=== PATIENT | female | born 1990 | race African-American/Black ===

== ENCOUNTER 2018-04-15 13:20 | Inpatient (IN) | payer MEDICAID ==
[~2018-04-15] VITALS: Ht 162.6 cm; Wt 82.6 kg
[2018-04-15] MEDS ORDERED: METF-960 PO (13:34)
[2018-04-15] MEDS ORDERED: psych meds PO (13:34)
[2018-04-15 13:39] LABS: GLUCOSE,POINT OF CARE 226 MG/DL (70-110)
[2018-04-15 14:38] LABS: BASOPHILS % (AUTO) 0.1 % (0.0-2.0); EOSINOPHILS % (AUTO) 0.9 % (1.0-6.0); HEMATOCRIT 34.7 % (36-46); HEMOGLOBIN 11.6 g/dL (12.0-16.0); LYMPHOCYTES % (AUTO) 9.2 % (22.0-44.0); MEAN CORPUSCULAR HEMOGLOBIN 27.7 pg (26.0-34.0); MEAN CORPUSCULAR HGB CONC 33.4 G/dL (31.0-37.0); MEAN CORPUSCULAR VOLUME 83 fL (80-100); MONOCYTES # (AUTO) 0.8 K/uL (0.1-1.0); MONOCYTES % (AUTO) 7.7 % (2.0-9.0); NEUTROPHILS # (AUTO) 8.5 K/uL (1.8-7.7); NEUTROPHILS % (AUTO) 82.1 % (40.0-70.0); PLATELET COUNT (AUTO) 308 K/uL (150-450); RED BLOOD CELL COUNT(AUTO) 4.18 MIL/uL (4.00-5.20); RED CELL DISTRIBUTION WIDTH 17.1 % (11.5-14.5)
[2018-04-15 14:52] LABS: ANION GAP 9 mmol/L (8-16); CALCIUM, TOTAL 9.1 mg/dL (8.8-10.5); CARBON DIOXIDE 28 mmol/L (22-29); CHLORIDE 101 mmol/L (98-107); CREATININE 0.65 mg/dL (0.60-1.30); GLOMERULAR FILTR. RATE CALC > 60 mL/min (>60); GLUCOSE,RANDOM 123 mg/dL (70-110); POTASSIUM 3.5 mmol/L (3.5-5.1); SODIUM SERUM 138 mmol/L (136-145); UREA NITROGEN, BLOOD 8 mg/dL (7-18)
[2018-04-15 14:59] LABS: ALANINE AMINOTRANSFERASE 85 U/L (12-78); ALBUMIN 3.2 g/dL (3.4-5.0); ALKALINE PHOSPHATASE 82 U/L (46-116); ASPARTATE AMINOTRANSFERASE 69 U/L (15-37); BILIRUBIN,TOTAL 0.3 mg/dL (0.1-1.0); TOTAL PROTEIN, SERUM 6.9 g/dL (6.4-8.2)
[2018-04-15] MEDS ORDERED: ZOLPIDEM TARTRATE 10 MG TABLET PO PRN (16:45)
[2018-04-15] MEDS ORDERED: LORazepam 2 MG TABLET PO ONE (17:00)
[2018-04-15] MEDS ORDERED: QUEtiapine FUMARATE 100 MG TABLET PO ONE (17:00)
[2018-04-15 17:44] LABS: CHOL/HDL RATIO 3.6 (3.9-5.7); CHOLESTEROL 137 mg/dL (131-200); HCG,QUANTITATIVE < 1 mIU/mL (0-6); HDL CHOLESTEROL 38 mg/dL (40-60); LDL CHOL (CALC.) 59 mg/dL (0-130); TRIGLYCERIDES 201 mg/dL (15-150)
[2018-04-15] MEDS ORDERED: DOCUSATE SODIUM 100 MG CAPSULE PO PRN (20:00)
[2018-04-15] MEDS ORDERED: ACETAMINOPHEN 325 MG TABLET PO PRN (20:00)
[2018-04-15] MEDS ORDERED: MAG HYDROX/AL HYDROX/SIMETH ES 30 ML SUSPENSION UDCUP PO PRN (20:00)
[2018-04-15] MEDS ORDERED: ONDANSETRON HCL 4 MG TABLET PO PRN (20:00)
[2018-04-15] MEDS ORDERED: MAGNESIUM HYDROXIDE SUSPENSION 30 ML UDCUP PO PRN (20:00)
[2018-04-15] MEDS ORDERED: ALBUTEROL SULFATE HFA 90 MCG/PUFF 8 GM INHALER IH PRN (20:00)
[2018-04-15] MEDS ORDERED: CloNIDine HCL 0.1 MG TABLET PO PRN (20:00)
[2018-04-15] MEDS ORDERED: PETROLATUM,WHITE 71 GM JELLY TP PRN (20:00)
[2018-04-15] MEDS ORDERED: LOPERAMIDE HCL 2 MG CAPSULE PO PRN (20:00)
[2018-04-15] MEDS ORDERED: GuaiFENesin/D-METHORPHAN [SUGAR-FREE] 200-20MG/10 ML SYRUP UDCUP PO PRN (20:00)
[2018-04-15 20:11] VITALS: BP 114/55
[2018-04-16 03:57] VITALS: BP 110/55
[2018-04-16] MEDS: MetFORMIN HCL 500 MG TABLET PO SCH (06:36)
[2018-04-16 07:06] LABS: HEMOGLOBIN A1C 9.2 % (4.5-6.2)
[2018-04-16 07:53] LABS: CHOL/HDL RATIO 3.2 (3.9-5.7); THYROID STIMULATING HORMONE 0.23 uIU/mL (0.36-3.74)
[2018-04-16 08:58] VITALS: BP 145/76
[2018-04-16] MEDS: NICOTINE 14 MG/24 HOUR PATCH TD SCH (09:00)
[2018-04-16] MEDS: DIVALPROEX SODIUM 500 MG DR TABLET PO SCH (16:29)
[2018-04-16] MEDS: ZIPRASIDONE HCL 20 MG CAPSULE PO SCH (16:30)
[2018-04-16 17:54] LABS: APPEARANCE,URINE CLOUDY (CLEAR); BILIRUBIN,URINE NEGATIVE (NEGATIVE); GLUCOSE, URINE (UA) NEGATIVE (NEGATIVE); KETONES,URINE NEGATIVE (NEGATIVE); LEUKOCYTE ESTERASE ,URINE TRACE (NEGATIVE); NITRATE,URINE NEGATIVE (NEGATIVE); OCCULT BLOOD,URINE NEGATIVE (NEGATIVE); PH,URINE 6.5 (5.0-8.0); PROTEIN,URINE NEGATIVE (NEGATIVE); UROBILINOGEN,URINE 0.2 mg/dL (<=1.0)
[2018-04-16 17:59] LABS: AMPHET/METH SCREEN,URINE NEGATIVE (NEGATIVE); BARBITURATE SCREEN, URINE NEGATIVE (NEGATIVE); BENZODIAZEPINES SCREEN,URINE NEGATIVE (NEGATIVE); CANNABINOID SCREEN,URINE NEGATIVE (NEGATIVE); COCAINE SCREEN,URINE NEGATIVE (NEGATIVE); METHADONE SCREEN, URINE NEGATIVE (NEGATIVE); OPIATE SCREEN,URINE NEGATIVE (NEGATIVE); PHENCYCLIDINE SCREEN,URINE NEGATIVE (NEGATIVE)
[2018-04-16 18:22] LABS: BACTERIA,URINE Few /HPF (None Seen); RBC,URINE None Seen /HPF (0-2); SQUAMOUS EPITHELIAL CELL,UR Moderate /LPF (None Seen)
[2018-04-16 19:00] VITALS: BP 119/72
[2018-04-17] MEDS: ZIPRASIDONE HCL 20 MG CAPSULE PO SCH ×2 (06:43→16:42)
[2018-04-17] MEDS: MetFORMIN HCL 500 MG TABLET PO SCH (06:43)
[2018-04-17 08:44] VITALS: BP 106/72
[2018-04-17] MEDS: NICOTINE 14 MG/24 HOUR PATCH TD SCH (09:00)
[2018-04-17] MEDS: DIVALPROEX SODIUM 500 MG DR TABLET PO SCH ×2 (10:51→16:42)
[2018-04-17 16:42] VITALS: BP 112/66
[2018-04-17] MEDS: IBUPROFEN 400 MG TABLET PO PRN (16:42)
[2018-04-17 17:08] VITALS: BP 112/66
[2018-04-17 17:42] VITALS: BP 133/71
[2018-04-18] MEDS: ZIPRASIDONE HCL 20 MG CAPSULE PO SCH ×2 (06:59→18:27)
[2018-04-18] MEDS: MetFORMIN HCL 500 MG TABLET PO SCH (06:59)
[2018-04-18 08:05] VITALS: BP 95/70
[2018-04-18] MEDS: NICOTINE 14 MG/24 HOUR PATCH TD SCH (09:00)
[2018-04-18] MEDS: DIVALPROEX SODIUM 500 MG DR TABLET PO SCH ×2 (09:00→18:27)
[2018-04-18] MEDS ORDERED: DiphenhydrAMINE HCL 50 MG/ML VIAL ONE (10:28)
[2018-04-18] MEDS ORDERED: LORazepam 2 MG/ML VIAL ONE (10:28)
[2018-04-18] MEDS ORDERED: HALOPERIDOL LACTATE 5 MG/ML VIAL ONE (10:28)
[2018-04-18] MEDS ORDERED: HALOPERIDOL LACTATE 5 MG/ML VIAL IM ONE (10:30)
[2018-04-18] MEDS ORDERED: LORazepam 2 MG/ML VIAL IM ONE (10:30)
[2018-04-18] MEDS ORDERED: DiphenhydrAMINE HCL 50 MG/ML VIAL IM ONE (10:30)
[2018-04-18] MEDS: LORazepam 2 MG TABLET PO PRN (11:08)
[2018-04-18 16:00] VITALS: BP 108/68
[2018-04-19 06:10] LABS: GLUCOMETER DEV NAME(LOC) 3E.C; GLUCOSE,POINT OF CARE 114 MG/DL (70-110)
[2018-04-19] MEDS: ZIPRASIDONE HCL 20 MG CAPSULE PO SCH ×2 (07:03→16:58)
[2018-04-19] MEDS: MetFORMIN HCL 500 MG TABLET PO SCH (07:03)
[2018-04-19 08:00] VITALS: BP 120/71
[2018-04-19] MEDS: NICOTINE 14 MG/24 HOUR PATCH TD SCH (09:00)
[2018-04-19] MEDS: DIVALPROEX SODIUM 500 MG DR TABLET PO SCH ×2 (09:36→16:58)
[2018-04-19 13:55] VITALS: BP 132/47
[2018-04-19] MEDS: IBUPROFEN 400 MG TABLET PO PRN (13:55)
[2018-04-19 16:44] VITALS: BP 108/60
[2018-04-19 17:19] LABS: GLUCOMETER DEV NAME(LOC) 3E.C; GLUCOSE,POINT OF CARE 210 MG/DL (70-110)
[2018-04-19] MEDS: LORazepam 2 MG TABLET PO PRN (19:00)
[2018-04-19] MEDS: QUEtiapine FUMARATE 100 MG TABLET PO PRN (20:10)
[2018-04-20 06:25] LABS: GLUCOMETER DEV NAME(LOC) 3E.C; GLUCOSE,POINT OF CARE 115 MG/DL (70-110)
[2018-04-20] MEDS: ZIPRASIDONE HCL 20 MG CAPSULE PO SCH (07:04)
[2018-04-20] MEDS: MetFORMIN HCL 500 MG TABLET PO SCH (07:04)
[2018-04-20 08:02] VITALS: BP 108/64
[2018-04-20] MEDS: DIVALPROEX SODIUM 500 MG DR TABLET PO SCH ×2 (08:41→08:48)
[2018-04-20] MEDS: NICOTINE 14 MG/24 HOUR PATCH TD SCH (08:41)
[2018-04-20] MEDS: QUEtiapine FUMARATE 100 MG TABLET PO PRN (08:49)
[2018-04-20] MEDS: LORazepam 2 MG TABLET PO PRN (08:49)
[2018-04-20] MEDS ORDERED: DIVA-78 PO (09:31)
[2018-04-20] MEDS ORDERED: ZIPR20CA2 PO (09:31)
== END 2018-04-20 14:15 | disposition home or self-care (01) | DRG 750 ==
LOC: EMS 13:21 → 3EI 18:34 → EMS 19:06 → 3EC 04-18 10:56
DX: F25.1 Schizoaffective disorder, depressive type (principal); R45.851 Suicidal ideations; E11.9 Type 2 diabetes mellitus without complications; F17.210 Nicotine dependence, cigarettes, uncomplicated; F41.9 Anxiety disorder, unspecified; Z88.8 Allergy status to other drugs, medicaments and biological substances; M79.7 Fibromyalgia; E78.5 Hyperlipidemia, unspecified; G89.29 Other chronic pain; Z91.5 Personal history of self-harm; M54.9 Dorsalgia, unspecified; R74.0 Nonspecific elevation of levels of transaminase and lactic acid dehydrogenase [LDH]; Z71.6 Tobacco abuse counseling
CPT/HCPCS: 83036; 84443; G0480; J1200; J1630; J2060